=== PATIENT | female | born 2000 | race Caucasian/White ===

== ENCOUNTER 2018-09-22 20:39 | Emergency (ER) | payer OTHER ==
[2018-09-22] MEDS ORDERED: oxyCODONE/Acetamin 5/325 MG* TAB PO ONE (22:36)
--- NOTE | 2018-09-22 22:50 | ED ---
Adult Trauma - HPI Summary HPI Summary: 18 year old female presents with right rib injury today. States she fell and landed in her right ribs. She has point tenderness over her posterior right mid rib. She admits to some shortness of breath due to the pain. No palpitations. No bowel pain. No other injury. She denies any history of ribs fractures. Has no medical conditions. - History of Current Complaint Chief Complaint: EDChestWallPain Stated Complaint: FALL Time Seen by Provider: 09/22/18 21:32 Pain Intensity: 6 - Allergy/Home Medications Allergies/Adverse Reactions: Allergies Allergy/AdvReac Type Severity Reaction Status Date / Time No Known Allergies Allergy Verified 09/22/18 20:46 PMH/Surg Hx/FS Hx/Imm Hx Endocrine/Hematology History: Denies: Hx Anticoagulant Therapy Respiratory History: Denies: Hx Asthma Infectious Disease History: No Infectious Disease History: Denies: Traveled Outside the [place] in Last 30 Days - Family History Known Family History: Negative: Respiratory Disease - Social History Alcohol Use: Rare Substance Use Type: Reports: None Smoking Status (MU): Never Smoked Tobacco Review of Systems Negative: Fever Positive: Chest Pain - right rib pain Negative: Shortness Of Breath, Cough All Other Systems Reviewed And Are Negative: Yes Physical Exam Triage Information Reviewed: Yes Vital Signs On Initial Exam: Initial Vitals Temp Pulse Resp BP Pulse Ox 98.9 F 86 16 128/86 95 09/22/18 20:42 09/22/18 20:42 09/22/18 20:42 09/22/18 20:42 09/22/18 20:42 Vital Signs Reviewed: Yes Appearance: Positive: Well-Appearing Skin: Positive: Warm, Dry Head/Face: Positive: Normal Head/Face Inspection Eyes: Positive: Normal, Conjunctiva Clear ENT: Positive: Pharynx normal Respiratory/Lung Sounds: Positive: Clear to Auscultation, Breath Sounds Present , Other - tenderness over right posterior midrib Cardiovascular: Positive: Normal, RRR Abdomen Description: Positive: Nontender, Soft. Negative: CVA Tenderness (R), CVA Tenderness (L) Bowel Sounds: Positive: Present Musculoskeletal: Positive: Normal Neurological: Positive: Normal Psychiatric: Positive: Normal Diagnostics - Vital Signs Vital Signs Temp Pulse Resp BP Pulse Ox 09/22/18 20:42 98.9 F 86 16 128/86 95 - Laboratory Lab Statement: Any lab studies that have been ordered have been reviewed, and results considered in the medical decision making process. - Radiology ribs Radiology Interpretation Completed By: ED Physician Summary of Radiographic Findings: rib fracture Adult Trauma Course/Dx - Course Course Of Treatment: 18 year old female presents with right rib injury today. States she fell and landed in her right ribs. She has point tenderness over her posterior right mid rib. She admits to some shortness of breath due to the pain. No palpitations. No bowel pain. No other injury. She denies any history of ribs fractures. Has no medical conditions. On exam has tenderness of the posterior aspect of mid right ribs. Lungs clear to auscultation. X-ray read by me as rib fracture of rib 6 with some displacement. No pneumo. No other rib fracture noted. Gave pain medication. Told to take deep breath to prevent pneumonia. Patient understands and agrees the plan. - Diagnoses Differential Diagnosis/HQI/PQRI: Positive: Abrasion(s), Contusion(s), Fracture Provider Diagnoses: Rib fracture, Fall Discharge - Sign-Out/Discharge Documenting (check all that apply): Patient Departure - Discharge Plan Condition: Good Disposition: HOME Prescriptions: Ibuprofen TAB* [Motrin TAB* 600 MG] 600 mg PO Q6H PRN #20 tab PRN Reason: Pain oxyCODONE/Acetamin 5/325 MG* [Percocet 5/325 TAB*] 1 tab PO Q6H PRN #20 tab MDD 4 PRN Reason: Pain Patient Education Materials: Rib Fracture (ED) Referrals: No Primary Care Phys,NOPCP [Primary Care Provider] - Additional Instructions: Take deep breath throughout the day Take Ibuprofen for pain every 6 hours, use percocet every 6 hours for breakthrough pain Follow up with health center within two week Return to ED if develop new productive cough, fever, or any new or worsening symptoms - Billing Disposition and Condition Condition: GOOD Disposition: Home
[2018-09-22 23:02] VITALS: BP 108/72
--- NOTE | 2018-09-23 08:01 | PN ---
Progress Note - Progress Note Date of Service: 09/22/18 Note: Pt. seen last night in ED for rib pain after fall. She was diagnosed with a displaced rib fracture. Radiologist reviewed xray this morning and he is concerned for pulmonary contusion and small right pleural effusion. I attempted to call pt. today at 0758 at [phone]. No answer and voicemail left to return call to ED. Will try to call her again this afternoon if no call back.
== END 2018-09-22 23:00 | disposition home or self-care (01) ==
LOC: ED 20:39
DX: S22.31XA Fracture of one rib, right side, initial encounter for closed fracture (principal); W19.XXXA Unspecified fall, initial encounter; Y92.9 Unspecified place or not applicable
CPT/HCPCS: 99282; A9270-GY

== ENCOUNTER 2018-09-23 12:13 | Emergency (ER) | payer OTHER ==
--- NOTE | 2018-09-23 12:42 | ED ---
Complex/Multi-Sys Presentation - HPI Summary HPI Summary: A 18 y/o female presents to [facility] with a chief complaint of dyspnea when breathing since the night of 09/22/2018 when she had a right rib injury with fractures. The patient reports that she slipped and fell. She was called back for more imaging. The patient reports more soreness and pain today than . She states that she was prescribed Percocet but has not taken it yet. - History Of Current Complaint Chief Complaint: EDGeneral Time Seen by Provider: 09/23/18 12:38 Hx Obtained From: Patient Onset/Duration: Sudden Onset, Lasting Hours, Still Present Timing: Constant Severity Initially: Moderate Associated Signs And Symptoms: Positive: Other - rib pain and soreness, dyspnea. - Allergies/Home Medications Allergies/Adverse Reactions: Allergies Allergy/AdvReac Type Severity Reaction Status Date / Time No Known Allergies Allergy Verified 09/23/18 12:15 PMH/Surg Hx/FS Hx/Imm Hx Endocrine/Hematology History: Denies: Hx Anticoagulant Therapy Respiratory History: Denies: Hx Asthma Infectious Disease History: No Infectious Disease History: Denies: Traveled Outside the [place] in Last 30 Days - Family History Known Family History: Negative: Respiratory Disease - Social History Alcohol Use: Rare Substance Use Type: Reports: None Smoking Status (MU): Never Smoked Tobacco Review of Systems Positive: Other - positive: dyspnea with breathing Positive: Myalgia - rib pain and soreness All Other Systems Reviewed And Are Negative: Yes Physical Exam - Summary Physical Exam Summary: Appearance: The patient is well-nourished in no acute distress and in no acute pain. Skin: The skin is warm and dry and skin color reflects adequate perfusion. HEENT: The head is normocephalic and atraumatic. The pupils are equal and reactive. The conjunctivae are clear and without drainage. Nares are patent and without drainage. Mouth reveals moist mucous membranes and the throat is without erythema and exudate. The external ears are intact. The ear canals are patent and without drainage. The tympanic membranes are intact. Neck: The neck is supple with full range of motion and non-tender. There are no carotid bruits. There is no neck vein distension. Respiratory: Chest is non-tender. Splinting, Decreased breath sounds in general but specifically right upper lung field. Cardiovascular: Heart is regular rate and rhythm. There is no murmur or rub auscultated. There is no peripheral edema and pulses are symmetrical and equal. Abdomen: The abdomen is soft and non-tender. There are normal bowel sounds heard in all four quadrants and there is no organomegaly palpated. Musculoskeletal: There is no back tenderness noted. Extremities are non-tender with full range of motion. There is good capillary refill. There is no peripheral edema or calf tenderness elicited. Neurological: Patient is alert and oriented to person, place and time. The patient has symmetrical motor strength in all four extremities. Cranial nerves are grossly intact. Deep tendon reflexes are symmetrical and equal in all four extremities. Psychiatric: The patient has an appropriate affect and does not exhibit any anxiety or depression. Triage Information Reviewed: Yes Vital Signs On Initial Exam: Initial Vitals Temp Pulse Resp BP Pulse Ox 98.2 F 86 18 108/73 94 09/23/18 12:15 09/23/18 12:15 09/23/18 12:15 09/23/18 12:15 09/23/18 12:15 Vital Signs Reviewed: Yes Diagnostics - Vital Signs Vital Signs Temp Pulse Resp BP Pulse Ox 09/23/18 12:26 101 98 09/23/18 12:15 98.2 F 86 18 108/73 94 - Laboratory Result Diagrams: 09/23/18 13:27 09/23/18 13:27 Lab Statement: Any lab studies that have been ordered have been reviewed, and results considered in the medical decision making process. - CT Chest CT Interpretation Completed By: Radiologist Summary of CT Findings: . 1. SMALL TO MODERATE SIZE RIGHT HEMORRHAGIC PLEURAL EFFUSION AND ASSOCIATED SMALL. PNEUMOTHORAX. 2. SMALL RIGHT PULMONARY CONTUSION WITH SUGGESTION OF LACERATION TYPE INJURY. 3. DISPLACED FRACTURE OF THE RIGHT EIGHTH RIB AND NONDISPLACED FRACTURE OF THE RIGHT NINTH. RIB. Re-Evaluation - Re-Evaluation First Eval Re-Evaluation Time: 15:00 Change: Improved Comment: Pt is feeling better Complex Multi-Symp Course/Dx Course Of Treatment: Ms. Delaney slipped and fell fracturing her rib yesterday. She was seen here and diagnosed and given pain medication. The radiologist reviewed her chest x-ray this morning and felt that she had a pulmonary contusion a pleural effusion and requested a CT scan. Therefore she was called back. On arrival she complained only of the continued pain on the right side with movement and she had just woken up so she did had not had any pain medication yet today. She was given Percocet by mouth here while CT was obtained. CT revealed a small pulmonary contusion, a small pleural effusion and a small pneumothorax. It has been 24 hours at this point and this are stable findings therefore she is discharged in stable condition. - Diagnoses Provider Diagnoses: Pulmonary contusion, Pleural effusion, Pneumothorax, Broken ribs Discharge - Sign-Out/Discharge Documenting (check all that apply): Patient Departure - DC - Discharge Plan Condition: Stable Disposition: HOME Patient Education Materials: Traumatic Pneumothorax (ED), Rib Fracture (ED), Pleural Effusion (ED), Pulmonary Contusion (ED) [place]: [facility] [place] [facility] [place]] (2-3 days.) Additional Instructions: Follow up with your PCP in 2-3 days. Return to the ED if you experience any new or worsening symptoms. - Billing Disposition and Condition Condition: STABLE Disposition: Home - Attestation Statements Document Initiated by Scribe: Yes Documenting Scribe: Orestes Warner Provider For Whom Douglas is Documenting (Include Credential): Surinder Lopez MD Scribe Attestation: IOrestes, scribed for Surinder Lopez MD on 09/23/18 at 2112. Scribe Documentation Reviewed: Yes Provider Attestation: The documentation as recorded by the Orestes posadas accurately reflects the service I personally performed and the decisions made by me, Surinder Lopez MD Status of Scribe Document: Viewed
[2018-09-23] MEDS ORDERED: oxyCODONE/Acetamin 5/325 MG* TAB PO ONE (12:44)
[2018-09-23 13:37] LABS: ABS Basophils 0 10^3/ul (0-0.2); ABS Eosinophils 0 10^3/ul (0-0.6); ABS Lymphocytes 1.2 10^3/ul (1.0-4.8); ABS Monocytes 0.3 10^3/ul (0-0.8); ABS Neutrophils 5.5 10^3/ul (1.5-7.7); ABS Nucleated RBC 0 10^3/ul; Eosinophil % 0.3 %; Hematocrit 38 % (35-47); Hemoglobin 12.2 g/dl (12.0-16.0); Lymphocyte % 16.9 %; Mean Corpuscular HGB Conc 32 g/dl (31-36); Mean Corpuscular Hemoglobin 27 pg (27-31); Mean Corpuscular Volume 82 fL (80-97); Mean Platelet Volume 8.1 fL (7.4-10.4); Nucleated Red Blood Cells % 0; Platelet Count 246 10^3/ul (150-450); Red Cell Distribution Width 14 % (10.5-15); White Blood Count 7.1 10^3/ul (3.5-10.8)
[2018-09-23 13:58] LABS: EGFR Non-African American 103.3 (>60)
[2018-09-23] MEDS ORDERED: Iohexol 300* (CONTRAST) 10 ML SDV IV ONE (14:02)
[2018-09-23 15:22] VITALS: BP 109/76
== END 2018-09-23 15:21 | disposition home or self-care (01) ==
LOC: ED 12:13
DX: S27.0XXA Traumatic pneumothorax, initial encounter (principal); S22.41XA Multiple fractures of ribs, right side, initial encounter for closed fracture; S27.321A Contusion of lung, unilateral, initial encounter; J90 Pleural effusion, not elsewhere classified; W01.0XXA Fall on same level from slipping, tripping and stumbling without subsequent striking against object, initial encounter; Y92.9 Unspecified place or not applicable
CPT/HCPCS: 36415; 71260; 80053; 85025; 99282; A9270-GY; Q9967